=== PATIENT | female | born 1945 | race Caucasian/White ===

== ENCOUNTER → 2018-10-01 12:59 | Outpatient (BNVA) | payer MEDICARE, OTHER, SELFPAY | PROVIDERS: PCP Internal Medicine; Referring Provider Registered Nurse; Visit Provider Physical Therapy Assistant | DX: Z12.11 Encounter for screening for malignant neoplasm of colon (principal); Z86.010 Personal history of colon polyps ==

== ENCOUNTER 2018-10-18 08:59 | Day surgery (SDC) | payer MEDICARE, OTHER, SELFPAY ==
--- NOTE | 2018-10-18 06:41 | W.COLOREPORT ---
Date of service: 10/18/18 Time of Service: 10:11 Colonoscopy Report Date of procedure: 10/18/18 Pre-op diagnosis general: Colon Cancer Screening Post-op diagnosis procedure note: other (Diverticulosis) Procedure: Colonoscopy Surgeon: Kristen Antony Anesthesia proc note operative: other (General/ ASA 2/ thanh Reid, SHIRLENE) Estimated blood loss (mL): 3 Pathology: none sent Complications: None Disposition: same day Indications: Mrs. Shannon is a pleasant 73 year old female seen in the office for a colonoscopy. Her last Colonoscopy was in 2007 and was normal. Risks, benefits and complications have been reviewed. Complications include but are not limited to bleeding, pain, perforation, missed small lesion/polyp, sore throat, aspiration and adverse reaction to the medications. Questions were entertained and answered to their satisfaction and they wished to proceed. No guarantees were given or implied. Prep: Miralax/Dulcolax Procedure Start Time: 10:11 Procedure End Time: 10:40 Retraction Time: 19 minutes Findings: No polyps. Mild Diverticulosis of the descending and sigmoid colon Procedure Description: After informed consent was obtained the patient was taken to the procedure room and placed in a left decubitous position. Monitors were applied and a time out was done. The patients name, date of , procedure, allergies to medications and metal in their body was reviewed. The patient was then sedated. Once sedated and comfortable a rectal exam was done. External exam was normal. Internal exam revealed a normal sphincter tone and no palpable masses. The scope was then introduced and retro-flexed. No internal hemorrhoids were identified. No polyps or masses noted in the rectum. The scope was then advanced to the cecum without difficulty. The TI and appendiceal orifice were identified. The prep was adequate. The scope was then slowly retracted over 19 minutes back into the rectum. There were no polyps. There was mild diverticulosis of the descending and sigmoid colon. The scope was removed and the patient was woken up and taken back to Same day surgery in stable condition. The patient tolerated the procedure well and there were no immediate complications. Follow up: The patient should follow up as needed if they develop changes in bowel habits or other new gastrointestinal complaints.
--- NOTE | 2018-10-18 06:42 | W.PM.DSUDISC ---
Discharge Plan Disposition Patient Disposition: HOME Condition: Good Discharge Details Reason For Visit: Colon Cancer Screening Attending Provider: Kristen Antony Primary Care Provider: Emily Gaytan Home Meds and New Rx's Prescriptions: Continued ranitidine HCl [Zantac] 150 mg Tablet 150 mg PO DAILY PRNRF: 0 Discontinued polyethylene glycol 3350 17 gram/dose powder 238 g PO ONCE Qty: 238 RF: 0 bisacodyl [Dulcolax (bisacodyl)] 5 mg tablet,delayed release (DR/EC) 5 mg PO ONCE Qty: 4 RF: 0 Discharge Instructions Instructions: Colonoscopy (DC) Additional Instructions: Findings: mild diverticulosis Follow up: as needed Please call if you develop: fevers >101.5 Nausea or Vomiting Abdominal pain that is not transient DAY SURGERY UNIT POST COLONOSCOPY INSTRUCTIONS 1. Because there will be medication in your system for the next 24 hours, you may feel a little sleepy. Your coordination will be affected. Therefore: a. Do not drive or operate dangerous equipment for 24 hours. b. Do not drink alcohol beverages for 24 hours (not even beer). c. Plan to go home and rest for the day. 2. Generally there are no restrictions on your activity after a day or so has gone by, but you may feel a bit fatigued for a few days. 3 After you arrive home you may have a light meal and return to a normal diet as you can tolerate it without feeling sick to your stomach. 4. After surgery, you may feel pain or discomfort. This should be only transient, but if it persists please contact your doctor. 5. If there are any questions regarding the findings of your procedure, please feel free to contact your doctor. 6. If you are unable to contact your doctor with a problem, contact the hospital at [phone]. 7. Continue all your regular medications unless directed otherwise. I understand the above instructions and have no questions. Signature of Patient or Responsible Adult Escort Date/Time Name of Responsible Adult Escort Signature of Nurse Date/Time Activity:: Activity as Tolerated Diet:: High fiber diet Discharge Orders Discharge Orders: Discharge Order (Routine); Ordered 10/18/18 Ordered By: Kristen Antony DS: Diagnosis Discharge Diagnosis (1) S/P colonoscopy: Status: Acute (2) Diverticulosis: Status: Acute
[2018-10-18 09:25] VITALS: BP 126/76; PULSE 55; RESP 16; TEMP 35.6; O2SAT 96
[2018-10-18] MEDS: Lactated Ringers 1,000 ML 80 ML IV (09:32)
[2018-10-18 11:27] VITALS: BP 144/80; PULSE 60; RESP 20; TEMP 35.7; O2SAT 100
[2018-10-18 12:20] VITALS: BP 133/74; PULSE 56; RESP 16; O2SAT 97
== END 2018-10-18 12:55 | disposition home or self-care (01) ==
LOC: SUR 09:00
PROVIDERS: PCP Registered Nurse; Visit Provider Surgery
PROC: 0DJD8ZZ Inspection of Lower Intestinal Tract, Via Natural or Artificial Opening Endoscopic (ICD-10-PCS; CPT 45378; principal; 2018-10-18 09:30)
DX: Z12.11 Encounter for screening for malignant neoplasm of colon (principal); K57.30 Diverticulosis of large intestine without perforation or abscess without bleeding; M25.512 Pain in left shoulder; M79.602 Pain in left arm; M54.2 Cervicalgia
CPT/HCPCS: G0121; 93005; 93010